=== PATIENT | female | born 1990 | race Caucasian/White ===

== ENCOUNTER 2020-02-01 06:24 | Emergency (ER) | payer OTHER ==
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
[2020-02-01 06:59] LABS: CHLORIDE,CL 103 mmol/L (98-107); SODIUM,NA 141 mmol/L (136-145)
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
[2020-02-01] MEDS ORDERED: Acetaminophen 500 MG Tab PO ONE (07:45)
== END 2020-02-01 08:24 | disposition home or self-care (01) ==
LOC: DL.ED 06:24
DX: S46.912A Strain of unspecified muscle, fascia and tendon at shoulder and upper arm level, left arm, initial encounter (principal); S20.211A Contusion of right front wall of thorax, initial encounter; S00.81XA Abrasion of other part of head, initial encounter; V89.2XXA Person injured in unspecified motor-vehicle accident, traffic, initial encounter
CPT/HCPCS: 36415; 71101; 73060; 80053; 84703; 85025; 99284; A9270

== ENCOUNTER 2022-08-05 06:55 | Emergency (ER) | payer BC, OTHER ==
[2022-08-05] MEDS ORDERED: Take Home: Cephalexin 500 MG Cap, 6 Cap Pack PO ONE (07:11)
[2022-08-05] MEDS ORDERED: cefTRIAXone 1 GM, Lidocaine 1% 2.1 ML IM ONE ×2 (07:11)
== END 2022-08-05 07:22 | disposition home or self-care (01) ==
LOC: DL.ED 06:55
DX: N61.0 Mastitis without abscess (principal); Z86.16 Personal history of COVID-19
CPT/HCPCS: 96372; 99283; A9270; J0696; J3490

== ENCOUNTER 2023-12-05 12:48 | Observation (INO) | payer BC ==
[2023-12-05] MEDS ORDERED: Sodium Chloride 0.9% 10 ML Syringe FLUSH PRN (13:26)
[2023-12-05] MEDS: Sodium Chloride 0.9% 1,000 ML IV SCH ×2 (14:59→17:42)
[2023-12-05] MEDS: cefTRIAXone 1 GM Vial IVPUSH SCH (15:01)
[2023-12-05] MEDS: Potassium Chloride 10 MEQ in Premix Bag 1 BAG IV SCH (15:01)
[2023-12-05] MEDS: Potassium Chloride 10 MEQ in Premix Bag 1 BAG IV ONE (16:34)
[2023-12-05] MEDS: Magnesium Oxide 400 MG Tab PO SCH (17:37)
[2023-12-05] MEDS: Potassium Chloride 10 MEQ Tab.ER PO SCH (17:37)
[2023-12-05] MEDS: Acetaminophen 325 MG Tab PO PRN (19:03)
[2023-12-05 20:23] LABS: MAGNESIUM 1.4 mg/dL (1.8-2.4); POTASSIUM,K 3.2 mmol/L (3.5-5.1)
[2023-12-05] MEDS: Sodium Chloride 0.9% 10 ML Syringe FLUSH SCH (21:21)
[2023-12-06 08:14] LABS: HEMATOCRIT 36.9 % (37.0-47.0); HEMOGLOBIN 12.7 g/dL (12.0-16.0); MEAN CORPUSCULAR HEMOGLOBIN 28.7 pg (27.0-34.0); MEAN CORPUSCULAR HGB CONC 34.4 g/dL (33.0-35.0); MEAN CORPUSCULAR VOLUME 83.3 fL (80-100); PLATELET COUNT,PLT 86 10^3/uL (150-450); RED BLOOD CELL COUNT 4.43 10^6/uL (4.2-5.4); WHITE BLOOD CELL COUNT,WBC 6.4 10^3/uL (5.0-10.0)
[2023-12-06 08:23] LABS: BASOPHILS PERCENT AUTO 0.2 % (0.0-1.0); EOSINOPHILS PERCENT AUTO 0.3 % (1.0-3.0); LYMPHOCYTES PERCENT AUTO 20.1 % (20.5-50.1); MONOCYTES PERCENT AUTO 9.7 % (2-8); NEUTROPHILS PERCENT AUTO 69.7 % (42.2-75.2)
[2023-12-06 08:35] LABS: ALBUMIN 3.1 g/dL (3.4-5.0); ANION GAP 13.1 mEq/L (7-13); BILIRUBIN TOTAL 0.5 mg/dL (0.2-1.0); BUN/CREATININE RATIO 5.7 (No establ ref range); CALCIUM 8.1 mg/dL (8.5-10.1); CREATININE 0.7 mg/dL (0.55-1.02); EST CRCL DRUG DOSING (CG) 96.33 mL/min; MAGNESIUM 1.5 mg/dL (1.8-2.4); POTASSIUM,K 3.1 mmol/L (3.5-5.1); PROTEIN TOTAL,TP 6.6 g/dL (6.4-8.2)
[2023-12-06 08:41] LABS: A/G RATIO 0.89
[2023-12-06 09:00] LABS: BAND PERCENT MAN 6 %; LYMPHOCYTES PERCENT MAN 20 % (20-50); MONOCYTES PERCENT MAN 13 % (2-8); SEG NEUTROPHILS PERCENT MAN 61 % (42-75)
[2023-12-06] MEDS: Magnesium Sulfate/Water Premix 2 GM in Premix Bag 1 BAG IV ONE (09:21)
[2023-12-06] MEDS: Potassium Chloride 10 MEQ Tab.ER PO ONE (09:27)
[2023-12-06] MEDS: Potassium Chloride 20 MEQ in Premix Bag 1 BAG IV ONE (11:09)
[2023-12-06 15:44] LABS: MAGNESIUM 1.8 mg/dL (1.8-2.4); POTASSIUM,K 3.7 mmol/L (3.5-5.1)
== END 2023-12-06 17:30 | disposition home or self-care (01) ==
LOC: DL.MS 12:48
PROVIDERS: ADMIT Internal Medicine; ATTEND Family Medicine
DX: O23.01 Infections of kidney in pregnancy, first trimester (principal); Z3A.01 Less than 8 weeks gestation of pregnancy
CPT/HCPCS: 36415; 80053; 83735; 84132; 85025; A9270; J0696; J3475; J3480; J7030; J3490

== ENCOUNTER 2024-12-20 21:59 | Emergency (ER) | payer MEDICAID, OTHER ==
[2024-12-20] MEDS: Take Home: Cephalexin 500 MG Cap, 6 Cap Pack PO ONE (23:35)
== END 2024-12-20 23:42 | disposition home or self-care (01) ==
LOC: DL.ED 21:59
DX: N61.0 Mastitis without abscess (principal)
CPT/HCPCS: 96374; 99283; A9270; J0690